=== PATIENT | male | born 1945 | race Caucasian/White ===

== ENCOUNTER 2018-09-24 20:33 | Outpatient (REF) | payer MEDICARE, SELFPAY ==
[2018-09-24 20:56] LABS: Anion Gap 6.4 mmol/L (3-11); BUN 12 mg/dL (7-18); CO2 30.6 mmol/L (21.0-32.0); CREATININE 1.08 mg/dL (0.70-1.30); Calcium 9.1 mg/dL (8.5-10.1); Chloride 105 mmol/L (98-107); Cholesterol 186 mg/dL (50-200); Glucose 91 mg/dL (70-100); HDL Cholesterol 38 mg/dL (40-60); LDL CHOLESTEROL 131 mg/dL (<100); Potassium 4.4 mmol/L (3.5-5.1); Sodium 142 mmol/L (136-145); Triglyceride 109 mg/dL (30-150)
== END 2018-09-24 20:53 ==
LOC: NCHCN 20:33
PROVIDERS: PCP Internal Medicine; Visit Provider Internal Medicine
DX: E78.00 Pure hypercholesterolemia, unspecified (principal); Z13.6 Encounter for screening for cardiovascular disorders
CPT/HCPCS: 80048; 80061; 83721

== ENCOUNTER 2021-01-15 14:50 | Outpatient (REF) | payer MEDICARE, BC, SELFPAY ==
[2021-01-15 13:12] LABS: Anion Gap 6.5 mmol/L (3-11); BUN 18 mg/dL (7-18); CO2 28.5 mmol/L (21.0-32.0); CREATININE 1.1 mg/dL (0.70-1.30); Calcium 8.7 mg/dL (8.5-10.1); Calculated LDL 115 mg/dL (<100); Chloride 108 mmol/L (98-107); Cholesterol 173 mg/dL (<200); Glucose 84 mg/dL (74-106); HDL Cholesterol 36 mg/dL (40-60); Sodium 143 mmol/L (136-145); Triglyceride 114 mg/dL (<150)
== END 2021-01-15 14:51 | disposition home or self-care (01) ==
LOC: NCHCN 14:50
PROVIDERS: PCP Internal Medicine; Visit Provider Internal Medicine
DX: R03.0 Elevated blood-pressure reading, without diagnosis of hypertension (principal); E78.00 Pure hypercholesterolemia, unspecified
CPT/HCPCS: 80048; 80061

== ENCOUNTER 2022-01-14 14:40 | Outpatient (REF) | payer MEDICARE, BC, SELFPAY ==
[2022-01-14 18:27] LABS: Anion Gap 8.7 mmol/L (3-11); BUN 18 mg/dL (7-18); CO2 28.3 mmol/L (21.0-32.0); Calculated LDL 56 mg/dL (<100); Chloride 106 mmol/L (98-107); Cholesterol 112 mg/dL (<200); Glucose 84 mg/dL (74-106); HDL Cholesterol 39 mg/dL (40-60); Sodium 143 mmol/L (136-145); Triglyceride 88 mg/dL (<150)
== END 2022-01-14 14:41 | disposition home or self-care (01) ==
LOC: NCHCN 14:40
PROVIDERS: PCP Internal Medicine; Visit Provider Internal Medicine
DX: E78.5 Hyperlipidemia, unspecified (principal); R03.0 Elevated blood-pressure reading, without diagnosis of hypertension
CPT/HCPCS: 80048; 80061

== ENCOUNTER 2023-01-16 15:39 | Outpatient (REF) | payer MEDICARE, BC, SELFPAY ==
[2023-01-16 15:21] LABS: BUN 19 mg/dL (7-18); CREATININE 1.1 mg/dL (0.70-1.30); Calcium 9.2 mg/dL (8.5-10.1); Calculated LDL 77 mg/dL (<100); Chloride 105 mmol/L (98-107); Cholesterol 135 mg/dL (<200); Estimated GFR 69.14 (mL/min/1.73m2); Glucose 93 mg/dL (74-106); HDL Cholesterol 41 mg/dL (40-60); Potassium 4.5 mmol/L (3.5-5.1); Sodium 142 mmol/L (136-145); Triglyceride 86 mg/dL (<150)
== END 2023-01-16 15:40 | disposition home or self-care (01) ==
LOC: NCHCN 15:39
PROVIDERS: PCP Internal Medicine; Visit Provider Internal Medicine
DX: E78.5 Hyperlipidemia, unspecified (principal); R03.0 Elevated blood-pressure reading, without diagnosis of hypertension
CPT/HCPCS: 80048; 80061

== ENCOUNTER 2023-01-23 22:08 | Outpatient (REF) | payer MEDICARE, BC, SELFPAY ==
[2023-01-28 21:16] LABS: IgG Immunoblot Negative (Negative); IgM Immunoblot Negative (Negative)
== END 2023-01-23 22:09 | disposition home or self-care (01) ==
LOC: NCHCN 22:08
PROVIDERS: PCP Internal Medicine; Visit Provider Internal Medicine
DX: W57.XXXA Bitten or stung by nonvenomous insect and other nonvenomous arthropods, initial encounter (principal)
CPT/HCPCS: 86617; 85048

== ENCOUNTER 2024-01-25 12:09 | Outpatient (REF) | payer MEDICARE, BC, SELFPAY ==
[2024-01-25 14:40] LABS: HCT 47.5 % (40.0-50.0); HGB 16.2 g/dL (13.5-17.5); MCH 30.4 pg (27.0-33.0); MCHC 34.1 % (32.0-36.0); MCV 89 fL (80-95); MPV 11.2 fL (8.0-11.0); Platelet Count 206 10^3/uL (130-400); RBC 5.33 10^6/uL (4.36-5.78); RDW 12.7 % (11.8-14.1); RDW-SD 41.5 fL; WBC 6.21 10^3/uL (4.4-10.8)
[2024-01-25 15:15] LABS: Anion Gap 5.5 mmol/L (3-11); BUN 15 mg/dL (7-18); CO2 29.5 mmol/L (21.0-32.0); CREATININE 1.2 mg/dL (0.70-1.30); Calcium 9.3 mg/dL (8.5-10.1); Calculated LDL 71 mg/dL (<100); Chloride 105 mmol/L (98-107); Cholesterol 128 mg/dL (<200); Glucose 98 mg/dL (74-106); HDL Cholesterol 44 mg/dL (40-60); Potassium 4.1 mmol/L (3.5-5.1); Sodium 140 mmol/L (136-145); Triglyceride 67 mg/dL (<150)
== END 2024-01-25 12:10 | disposition home or self-care (01) ==
LOC: NCHCN 12:09
PROVIDERS: PCP Internal Medicine; Visit Provider Internal Medicine
DX: E78.5 Hyperlipidemia, unspecified (principal); Z00.00 Encounter for general adult medical examination without abnormal findings
CPT/HCPCS: 80048; 80061; 85027

== ENCOUNTER 2025-01-27 10:09 | Outpatient (REF) | payer MEDICARE, BC, SELFPAY ==
[2025-01-27 14:47] LABS: HCT 48.9 % (40.0-50.0); HGB 16.1 g/dL (13.5-17.5); MCH 30.4 pg (27.0-33.0); MCHC 32.9 % (32.0-36.0); MCV 92 fL (80-95); MPV 10.6 fL (8.0-11.0); Platelet Count 192 10^3/uL (130-400); RBC 5.29 10^6/uL (4.36-5.78); RDW 12.6 % (11.8-14.1)
[2025-01-27 16:00] LABS: ALT 31 U/L (16-63); AST 29 U/L (15-37); Albumin 4.1 g/dL (3.4-5.0); Alkaline Phosphatase 94 U/L (46-116); Anion Gap 6.6 mmol/L (3-11); BUN 18 mg/dL (7-18); Bilirubin, Total 0.9 mg/dL (0.2-1.0); CO2 30.4 mmol/L (21.0-32.0); CREATININE 1.1 mg/dL (0.70-1.30); Calcium 9.2 mg/dL (8.5-10.1); Calculated LDL 72 mg/dL (<100); Chloride 105 mmol/L (98-107); Cholesterol 130 mg/dL (<200); Estimated GFR 68.29 (mL/min/1.73m2); Glucose 88 mg/dL (74-106); HDL Cholesterol 49 mg/dL (>or=40); Potassium 4.2 mmol/L (3.5-5.1); Sodium 142 mmol/L (136-145); Total Protein 7.9 g/dL (6.4-8.2); Triglyceride 46 mg/dL (<150)
== END 2025-01-27 10:10 | disposition home or self-care (01) ==
LOC: NCHCN 10:09
PROVIDERS: PCP Internal Medicine; Visit Provider Internal Medicine
DX: E78.5 Hyperlipidemia, unspecified (principal)
CPT/HCPCS: 80053; 80061; 85027